=== PATIENT | female | born 2005 | race Caucasian/White ===

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

== ENCOUNTER → 2023-03-03 13:33 | Outpatient (CLI) | payer MEDICAID, SELFPAY ==
--- NOTE | 2023-03-03 | DI.RAD_ITS ---
Exam(s) XR CHEST 2V PA LATERAL EXAM: XR CHEST 2V PA LATERAL CLINICAL HISTORY: CHEST PAIN, INTERMITTENT R07.89. TECHNIQUE: 2D digital imaging was performed. COMPARISON: No exams were available for comparison FINDINGS: 2 views: Heart size is normal. The mediastinum is not widened. Lungs are clear. No infiltrates nor pleural effusions. IMPRESSION: No acute pulmonary findings. DATA REPOSITORY: RADIATION DOSE DELIVERED:
== END ==
PROVIDERS: PCP Nurse Practitioner Family; Visit Provider Nurse Practitioner Family
DX: R07.89 Other chest pain (principal)
CPT/HCPCS: 71046

== ENCOUNTER 2023-03-03 13:36 | Outpatient (REF) | payer MEDICAID, SELFPAY ==
[2023-03-03 14:11] LABS: Abs Immature Grans 0.01 10^3/uL (0.0-0.06); Absolute Basophil Count 0.03 10^3/uL (0.0-0.2); Absolute Eosinophil Count 0.03 10^3/uL (0.0-0.7); Absolute Lymphocyte Count 1.67 10^3/uL (1.2-3.4); Absolute Monocyte Count 0.45 10^3/uL (0.1-0.8); Absolute Neutrophil Count 3.41 10^3/uL (1.2-6.7); Basophils % 0.5; Eosinophils % 0.5; HCT 38.1 % (36.0-46.0); HGB 12.7 g/dL (11.2-15.7); Immature Grans % 0.2; Lymphocytes % 29.8; MCH 30.7 pg (27.0-33.0); MCHC 33.3 % (32.0-36.0); MCV 92 fL (80-95); MPV 9.6 fL (8.0-11.0); Platelet Count 262 10^3/uL (130-400); RBC 4.14 10^6/uL (3.93-5.22); RDW 11.2 % (11.7-14.6)
[2023-03-03 14:25] LABS: ALT 21 U/L (14-59); AST 11 U/L (15-37); Albumin 4.1 g/dL (3.4-5.0); Alkaline Phosphatase 101 U/L (46-116); Anion Gap 8.3 mmol/L (3-11); BUN 17 mg/dL (7-18); Bilirubin, Total 0.4 mg/dL (0.2-1.0); CO2 25.7 mmol/L (21.0-32.0); CREATININE 0.8 mg/dL (0.55-1.02); Calcium 9.2 mg/dL (8.5-10.1); Chloride 104 mmol/L (98-107); Estimated GFR 108.78 (mL/min/1.73m2); Glucose 100 mg/dL (74-106); Lipase 19 U/L (16-77); Potassium 4.4 mmol/L (3.5-5.1); Sodium 138 mmol/L (136-145)
[2023-03-03 14:50] LABS: D-Dimer 200 ng/mlFEU (<500)
== END 2023-03-03 13:37 | disposition home or self-care (01) ==
LOC: LBN 13:36
PROVIDERS: PCP Nurse Practitioner Family; Visit Provider Nurse Practitioner Family
DX: R07.89 Other chest pain (principal); R10.12 Left upper quadrant pain
CPT/HCPCS: 80053; 83690; 85025; 85379

== ENCOUNTER 2024-02-10 19:54 | Emergency (ER) | payer MEDICAID, SELFPAY ==
[2024-02-10 19:57] VITALS: BP 108/55; PULSE 67; RESP 18; TEMP 36.6; O2SAT 100
--- NOTE | 2024-02-10 20:05 | ED.GENADUL_ITS ---
Discharge Plan Disposition Patient Disposition: Home Condition: Good Discharge Details Clinical Impression: Ulnar nerve compression Primary Care Provider: Cecilia Borrego ED Provider: Domingo Ferrer Meds and New Rx's Prescriptions: New ibuprofen 600 mg tablet 600 mg PO TID Qty: 20 0RF Rx Instructions: take with food Discharge Instructions Additional Instructions: You are having pain in your right arm and hand that is likely related to ulnar nerve compression. Not completely clear whether this is occurring in the wrist or the elbow. Modify your activity over the next week. Wear the wrist splint to take pressure off the wrist. Try to keep your arm straight including at night as we discussed. You may use ice on and off for the next few days to see if that helps. Take ibuprofen as directed 3 times a day with food for the next week. Follow-up with your primary care physician in the next week for recheck. Return to ED for any significant numbness or tingling in the distal hand, weakness to the hand or wrist, other concerns. HPI General Mode of arrival: ambulatory . Date/Time Provider Initiated Documentation: 02/10/24 20:05 . Limitations to Documentation: no limitations . Information obtained by: patient . HPI Narrative: Patient is a [id number] female presenting to ED with right wrist and pinky finger pain that began a couple of weeks ago. Now has pain radiating up toward the elbow and into the shoulder. Denies any direct injury. Has been working over the summer shoveling gravel. Has been wearing lidocaine patch in the wrist area but pain has been worsening. Denies any numbness or tingling or weakness in the hand. Denies any direct injury or fall. Related Data Home Medications ?Medication ?Instructions ?Recorded ?Confirmed ibuprofen 600 mg tablet 600 mg PO TID #20 tabs 02/10/24 Previous Rx's ?Medication ?Instructions ?Recorded ibuprofen 600 mg tablet 600 mg PO TID #20 tabs 02/10/24 Allergies Allergy/AdvReac Type Severity Reaction Status Date / Time No Known Allergies Allergy Unverified 02/10/24 20:00 General Stated Complaint: Orthopedic JOSE G: 4 Review of Systems Narrative: Per HPI Exam Narrative Exam Narrative: Const: WDWN female in NAD. VS per triage. HEENT: NC/AT. Normal facial exam. Neck: Supple. Trachea midline. Lungs: Normal respiratory effort. Neuro: A+O x 3. Normal speech, mentation, gait. Cranial nerves II - XII grossly intact. No gross motor or sensory deficit. Normal sensation/strength in hand. Ext: No C/C/E. Normal ROM in RUE. No erythema. No swelling in elbow or wrist. No definite worsening of pain and unable to elicit tingling while manipulating elbow/wrist. Course Vital Signs Vital signs: Vital Signs Temperature 97.9 F 02/10/24 19:57 Pulse 67 02/10/24 19:57 Respiratory Rate 18 02/10/24 19:57 Blood Pressure 108/55 L 02/10/24 19:57 Pulse Oximetry 100 02/10/24 19:57 Temperature 97.9 F 02/10/24 19:57 Pulse 67 02/10/24 19:57 Respiratory Rate 18 02/10/24 19:57 Respiratory Effort Normal, Non-Labored 02/10/24 19:59 Blood Pressure 108/55 L 02/10/24 19:57 Blood Pressure Position Sitting 02/10/24 19:57 Pulse Oximetry 100 02/10/24 19:57 Oxygen Delivery Method Room Air 02/10/24 19:57 Oxygen Flow Rate 0 02/10/24 19:57 Pain Level 5 02/10/24 19:57 Medical Decision Making Symptoms are consistent with ulnar nerve compression. Unclear whether this is occurring in the elbow or the wrist. Will start patient on ibuprofen 600 mg 3 times a day for the next week. Will place in a wrist cock-up splint to take pressure off in the wrist area. Recommend wrapping her arm and a towel or blanket at night to prevent her from bending the elbow. Should try to keep the elbow straight and should avoid bending at night. Decreased activity especially the shoveling which is likely the cause of her symptoms. Follow-up with primary care in a week for recheck. Return precautions provided. PFSH All Active Problems (Updated 02/10/24 @ 20:27 by Domingo Ferrer MD) Ulnar nerve compression (Acute) Social History Smoking/Tobacco Use Status: Never Smoking risk assessment performed?: Yes Alcohol Intake: never Drug use: Never Substance use type: does not use
== END 2024-02-10 20:39 | disposition home or self-care (01) ==
LOC: ER 20:53
PROVIDERS: Emergency Provider Emergency Medicine; PCP Nurse Practitioner Family
DX: G56.21 Lesion of ulnar nerve, right upper limb (principal)
CPT/HCPCS: 99283